=== PATIENT | female | born 1980 | race Caucasian/White ===

== ENCOUNTER 2017-07-06 18:54 | Emergency (ER) | payer OTHER ==
[2017-07-06] MEDS ORDERED: KETOROLAC TROMETHAMINE 60 MG/2 ML VIAL IM ONE (19:14)
--- NOTE | 2017-07-06 19:17 | ED Physician Documentation ---
Sore Throat/Dental Pain - HISTORIAN Historian: patient, spouse - HPI Chief Complaint: Sore Throat Onset: days ago Associated Symptoms: fever, chills, sore throat, severe, runny nose, congestion Further Comments: yes (37 year old female patient presents with complaints of severe sore throat, rates pain 10/10. Took tylenol at 1630 with no improvement , states she is out of ibuprofen. Patient crying and gagging; vomited after rapid strep test.) - ROS CONST: no problems CVS/RESP: none GI/: denies: nausea, vomiting - PAST HX Past History: denies: none Other History: other (HTN, asthma) Allergies/Adverse Reactions: Allergies Allergy/AdvReac Type Severity Reaction Status Date / Time Sulfa (Sulfonamide Allergy Severe Rash Verified 07/06/17 19:15 Antibiotics) Home Medications: Ambulatory Orders Medication Instructions Recorded Amlodipine Besylate 2.5 mg PO DAILY u2 07/14/13 Lisinopril 10 mg PO DAILY u2 07/14/13 Sertraline HCl 50 mg PO DAILY u2 07/14/13 Azithromycin [Zithromax] 250 mg PO DAILY #6 tablet 07/06/17 - SOCIAL HX Smoking History: cigarettes - FAMILY HX Family History: No - VITAL SIGNS Vital Signs: Vital Signs Temp Pulse Resp BP Pulse Ox 100.4 F H 94 H 16 123/89 100 07/06/17 19:25 07/06/17 19:25 07/06/17 19:25 07/06/17 19:25 07/06/17 19:25 - REVIEWED ASSESSMENTS Nursing Assessment Reviewed: Yes Vitals Reviewed: Yes ED Results Lab/Radiology - Orders Orders: ED Orders Category Date Time Status Rapid Strep [GRP A STREP SCREEN] Stat Lab 07/06/17 19:02 Ordered Ketorolac Tromethamine [Toradol] Med 07/06/17 19:14 Discontinued 60 mg IM NOW ONE Sore throat Physical Exam - EXAM General Appearance: moderate distress Head/Neck: head nml inspection, trachea midline, no lymphadenopathy, thyroid nml , neck nml inspection Mouth/Throat: lips nml, gums nml, voice nml, no drooling, no air way problems, no thrush, membranes nml, pharyngeal erythema, tonsillar exudate Respiratory: no resp. distress, breath sounds nml CVS: reg. rate & rhythm, heart sounds nml Skin: normal color, warm/dry, NR, INT, PAL, DR Neuro/Psych: oriented x3, mood/affect nml Discharge Clincal Impression: Strep pharyngitis Prescriptions: Azithromycin [Zithromax] 250 mg PO DAILY #6 tablet Referrals: Dao Ware MD [Primary Care Provider] - 2 Days Additional Instructions: Chloraseptic spray or lozenges as needed for throat pain. Warm salt water gargles as needed pain Increase your fluid intake juices, hot tea, non-caffeinated beverages If you are congested - You may want to try Vicks rub on your chest and/or feet Use a humidifier in the room where you sleep. You can also sit in a steam filled bathroom 1-2 times a day. Tylenol or Ibuprofen as needed for fever, pain and body aches. [employer] supervisor your antibiotic and start it today. Condition: Stable Disposition: 01 HOME, SELF-CARE Decision to Admit: NO Decision Time: 19:18
[2017-07-06 19:45] VITALS: BP 123/89
== END 2017-07-06 19:25 | disposition home or self-care (01) ==
LOC: ED 18:54
DX: J02.0 Streptococcal pharyngitis (principal); I10 Essential (primary) hypertension; F17.210 Nicotine dependence, cigarettes, uncomplicated
CPT/HCPCS: 87880; J1885; 96372; 99282